=== PATIENT | female | born 1975 | race Caucasian/White ===

== ENCOUNTER 2016-07-20 07:11 | Day surgery (SDC) | payer BC ==
[~2016-07-20] VITALS: Ht 162.6 cm; Wt 25.5 kg
[~2016-07-20 07:11] MED LIST: MULTIPLE VITAMI1 CAP PO
[2016-07-20 07:47] VITALS: BP 99/66; PULSE 78; TEMP 98
[2016-07-20] MEDS ORDERED: DOXYCYCLINE HY100 MG PO (07:51)
[2016-07-20] MEDS ORDERED: XIFAXAN550 MG PO (07:51)
[2016-07-20] MEDS ORDERED: MOTRIN 200200 MG/TAB PO (07:52)
[2016-07-20] MEDS ORDERED: [UNRECOGNIZED DRUG - OTHER] (07:53)
[2016-07-20] MEDS ORDERED: [UNRECOGNIZED DRUG - OTHER] (07:53)
[2016-07-20] MEDS ORDERED: GLUTATHIONE1 POW (07:54)
[2016-07-20] MEDS ORDERED: ORTHO BIOTIC (07:54)
[2016-07-20] MEDS ORDERED: [UNRECOGNIZED DRUG - OTHER] PO (07:55)
[2016-07-20 09:00] VITALS: BP 93/53; PULSE 77; TEMP 97.7
[2016-07-20 09:15] VITALS: BP 99/60; PULSE 65
[2016-07-20 09:30] VITALS: BP 92/60; PULSE 54
[2016-07-20 09:45] VITALS: BP 100/68; PULSE 56
[2016-07-20 13:37] VITALS: BP 101/66; PULSE 69
== END 2016-07-20 10:00 | disposition home or self-care (01) ==
LOC: SDCO 07:11
DX: K63.5 Polyp of colon (principal); K57.30 Diverticulosis of large intestine without perforation or abscess without bleeding; R19.7 Diarrhea, unspecified; F17.200 Nicotine dependence, unspecified, uncomplicated
CPT/HCPCS: J2250; J3010; J7030

== ENCOUNTER → 2016-11-06 | Outpatient (CLI) | payer BC ==
[~2016-11-06] MED LIST changes: +DOXYCYCLINE HY100 MG PO; +GLUTATHIONE1 POW; +MOTRIN 200200 MG/TAB PO; +ORTHO BIOTIC; +XIFAXAN550 MG PO; +[UNRECOGNIZED DRUG - OTHER]; +[UNRECOGNIZED DRUG - OTHER]; +[UNRECOGNIZED DRUG - OTHER] PO
== END ==
LOC: MC.RAD 11:38
DX: Z12.31 Encounter for screening mammogram for malignant neoplasm of breast (principal)

== ENCOUNTER → 2016-11-07 | Outpatient (CLI) | payer BC | LOC: MC.RAD 13:30 | DX: N64.89 Other specified disorders of breast (principal); R92.2 Inconclusive mammogram ==

== ENCOUNTER → 2017-05-20 | Outpatient (CLI) | payer BC | LOC: MC.RAD 07:29 | DX: R92.8 Other abnormal and inconclusive findings on diagnostic imaging of breast (principal) ==

== ENCOUNTER → 2017-11-08 | Outpatient (CLI) | payer BC | LOC: MC.RAD 09:00 | DX: N64.89 Other specified disorders of breast (principal) ==

== ENCOUNTER → 2018-12-04 | Outpatient (CLI) | payer BC | LOC: MC.RAD 16:24 | DX: Z12.31 Encounter for screening mammogram for malignant neoplasm of breast (principal); R92.0 Mammographic microcalcification found on diagnostic imaging of breast ==

== ENCOUNTER → 2018-12-09 | Outpatient (CLI) | payer BC | LOC: MC.RAD 14:00 | DX: R92.0 Mammographic microcalcification found on diagnostic imaging of breast (principal); N63.20 Unspecified lump in the left breast, unspecified quadrant ==

== ENCOUNTER → 2018-12-24 | Outpatient (CLI) | payer BC | LOC: MC.RAD 09:54 | DX: R92.0 Mammographic microcalcification found on diagnostic imaging of breast (principal); R92.8 Other abnormal and inconclusive findings on diagnostic imaging of breast ==

== ENCOUNTER → 2019-12-10 | Outpatient (CLI) | payer BC | LOC: MC.RAD 16:36 | DX: Z12.31 Encounter for screening mammogram for malignant neoplasm of breast (principal) ==

== ENCOUNTER → 2020-12-27 | Outpatient (CLI) | payer BC | LOC: MC.RAD 11:41 | DX: Z12.31 Encounter for screening mammogram for malignant neoplasm of breast (principal) ==

== ENCOUNTER 2021-09-20 10:37 | Day surgery (SDC) | payer BC ==
[~2021-09-20] VITALS: Ht 162.6 cm; Wt 55.8 kg
[2021-09-20] MEDS ORDERED: FLONASEALLERGY NS (11:00)
[2021-09-20] MEDS ORDERED: PROAIR HFA0.09 MG/AC IH (11:01)
[2021-09-20] MEDS ORDERED: FOLIC ACID 11 MG/TA1 PO (11:01)
[2021-09-20] MEDS ORDERED: BENADRYL25 M2 PO (11:01)
[2021-09-20] MEDS ORDERED: ALLEGRA 180MG180 MG PO (11:02)
[2021-09-20] MEDS ORDERED: METHOTREXA2.5 MG/TAB PO (11:03)
[2021-09-20] MEDS ORDERED: TYLENOL 500MG500 MG PO (11:05)
[2021-09-20 11:06] VITALS: BP 126/68; PULSE 71; TEMP 97.7
[2021-09-20 12:45] VITALS: BP 100/63; PULSE 98; TEMP 97
--- NOTE | 2021-09-20 12:45 | NUR ---
PT arrived from procedure drowsy but oriented. PT assisted from cart to chair by Adri MCCULLOUGH. Warm blankets applied. Monitors applied and vitals obtained. O2 stats are below 90% at 88% PT instructed to cough hard twice, follow by deep breathing exercise. Repeated twice. O2 at 98% - 95% on room air. Water, black coffee and cracker served per request. PT oriented to room and call allen, within reach. Will monitor per intervals. Verbal room report obtained. is present.
[2021-09-20 13:00] VITALS: BP 110/68; PULSE 57
--- NOTE | 2021-09-20 13:00 | NUR ---
VSS. spoke with the PT. PT denies nausea. NO vomiting. PT expressed desire to be discharged. Call allen within reach.
[2021-09-20 13:15] VITALS: BP 106/59; PULSE 59
--- NOTE | 2021-09-20 13:15 | NUR ---
VSS. PT expressed desire to be discharged. IV discontinued. Catheter tip intact. Pressure bandage applied. NO redness or swelling noted. DC instructions and educational material reviewed, the PT verbalized understanding and signed the realted paperwork. Questions answered. PT denied needing assistance changing, is present. Call allen remains within reach.
--- NOTE | 2021-09-20 13:35 | NUR ---
PT dismissed from endo via wheelchair to the PT entrence by Elma MCCULLOUGH. PT has DC packet and personal belongings, and was transferred into the care of her who is driving private car.
== END 2021-09-20 13:40 | disposition home or self-care (01) ==
LOC: SDCO 10:37
DX: K29.60 Other gastritis without bleeding (principal); K44.9 Diaphragmatic hernia without obstruction or gangrene; R19.7 Diarrhea, unspecified; R10.12 Left upper quadrant pain; R10.11 Right upper quadrant pain; Z87.891 Personal history of nicotine dependence; Z80.9 Family history of malignant neoplasm, unspecified; J30.2 Other seasonal allergic rhinitis; Z79.899 Other long term (current) drug therapy
CPT/HCPCS: J2704; J7120

== ENCOUNTER → 2021-12-01 | Outpatient (CLI) | payer BC ==
[~2021-12-01] MED LIST changes: +ALLEGRA 180MG180 MG PO; +BENADRYL25 M2 PO; +FLONASEALLERGY NS; +FOLIC ACID 11 MG/TA1 PO; +METHOTREXA2.5 MG/TAB PO; +PROAIR HFA0.09 MG/AC IH; +TYLENOL 500MG500 MG PO
== END ==
LOC: COL.RAD 11:19
DX: R05.3 Chronic cough (principal)
CPT/HCPCS: Q9967

== ENCOUNTER → 2022-01-03 | Outpatient (CLI) | payer BC | LOC: MC.RAD 09:15 | DX: Z12.31 Encounter for screening mammogram for malignant neoplasm of breast (principal) ==

== ENCOUNTER → 2024-02-13 | Outpatient (CLI) | payer BC | LOC: MC.RAD 13:00 | DX: Z12.31 Encounter for screening mammogram for malignant neoplasm of breast (principal) ==